=== PATIENT | female | born 2000 | race Caucasian/White ===

== ENCOUNTER 2022-11-28 20:18 | Emergency (ER) | payer OTHER ==
[~2022-11-28] VITALS: Ht 160 cm; Wt 54.4 kg
[2022-11-28 20:50] VITALS: BP 128/80
--- NOTE | 2022-11-28 20:50 | NUR ---
TO BED AMBULATORY
--- NOTE | 2022-11-28 21:05 | NUR ---
pt to bed #5
[2022-11-28 21:34] LABS: BASOPHILS % (AUTO) 0.5 % (0.0-2.0); EOSINOPHILS # (AUTO) 0.1 K/uL (0-0.4); EOSINOPHILS % (AUTO) 0.7 % (0.0-4.0); HEMATOCRIT 30.2 % (36-48); HEMOGLOBIN 9.6 g/dL (12.0-16.0); LYMPHOCYTES # (AUTO) 1.8 K/uL (2.5-16.5); LYMPHOCYTES % (AUTO) 23.3 % (20.5-51.1); MEAN CORPUSCULAR HEMOGLOBIN 22 pg (27-31); MEAN CORPUSCULAR HGB CONC 32 g/dL (33-37); MEAN CORPUSCULAR VOLUME 68.1 fL (80-94); MONOCYTES # (AUTO) 0.5 K/uL (0.8-1.0); MONOCYTES % (AUTO) 6.1 % (1.7-9.3); NEUTROPHILS # (AUTO) 5.4 K/uL (1.8-7.7); NEUTROPHILS % (AUTO) 69.4 % (42.2-75.2); PLATELET COUNT (AUTO) 290 K/uL (140-450); RED BLOOD CELL COUNT(AUTO) 4.44 MIL/uL (4.20-5.40); RED CELL DISTRIBUTION WIDTH 18.3 % (11.6-13.7); WHITE BLOOD COUNT (AUTO) 7.8 K/uL (4.5-11.0)
--- NOTE | 2022-11-28 21:35 | NUR ---
UA collected and sent to lab
--- NOTE | 2022-11-28 21:40 | NUR ---
22 Y/O F presents with sucidal ideation x 1week triggered by parents due to verbal aggresion, increased tension, and states has a plan to take OTC medication to OD, not sure exactly when. pt stated she has had these thoughts sincve the 7th grade. pt has superficial abrasion cuts to her L FA stated most recent cut was today with razor blades and shes been cutting since the 7th grade. pt also stated she has been hospitalizied in the 7th grade once x6days and another x8days, but havent been hospitalizied since. pt states she has recently started therapy x1 session x1week ago. pt states she has siblings but no other support system she can stay with, she is actively staying with parents at the moment. pt is A&Ox4, skin intact, denies being on any blood thinners or prescribed meds at home. PMH- NKA
[2022-11-28 21:55] LABS: BARBITURATE, URINE NEGATIVE ng/ml (NEG <=200); BENZODIAZEPINE, URINE NEGATIVE ng/mL (NEG <=200); CANNABINOID, URINE POSITIVE ng/mL (NEG <=50); COCAINE, URINE NEGATIVE ng/mL (NEG <=300); OPIATE, URINE NEGATIVE ng/mL (NEG <=2000); PHENCYCLIDINE SCREEN,URINE NEGATIVE ng/mL (NEG <=25)
[2022-11-28 21:55] LABS: ANION GAP 12.1 (8-16); CARBON DIOXIDE 29.3 mmol/L (21-32); CREATININE 0.9 mg/dL (0.6-1.3); POTASSIUM 3.4 mmol/L (3.5-5.1)
[2022-11-28 22:05] LABS: ACETAMINOPHEN < 0.5 ug/ml (10-30); SALICYLATE < 2.8 mg/dL (2.8-20.0)
--- NOTE | 2022-11-28 22:07 | NUR ---
Patient being evaluated by physician at bedside.
--- NOTE | 2022-11-28 23:00 | NUR ---
pt ambulatory to restroom
--- NOTE | 2022-11-28 23:05 | NUR ---
pt returned from restroom
[2022-11-28] MEDS ORDERED: MELATONIN 3 MG TAB PO STA (23:55)
[2022-11-28] MEDS ORDERED: hydrOXYzine PAMOATE 25 MG CAP PO STA (23:55)
[2022-11-29] MEDS ORDERED: traZODone 50 MG TAB PO STA (01:05)
[2022-11-29] MEDS ORDERED: HYDROXYZINE HYDROCHLORIDE 25 MG TAB ONE (01:05)
--- NOTE | 2022-11-29 01:33 | NUR ---
pt speaking with Dr. Rivera at this time.
[2022-11-29] MEDS ORDERED: FERR325E14 PO (02:14)
[2022-11-29] MEDS ORDERED: BUPR-160 PO (02:14)
--- NOTE | 2022-11-29 02:17 | NUR ---
Dr. Siddiqi at bedside
--- NOTE | 2022-11-29 02:50 | NUR ---
Patient discharged with v/s stable. Written and verbal after care instructions given and explained. Patient alert, oriented and verbalized understanding of instructions. Ambulatory with steady gait. All questions addressed prior to discharge. ID band removed. Patient advised to follow up with PMD. Rx of Bupropion HCI and ferrous sulfate given. Opportunity to ask questions provided and answered.
== END 2022-11-29 02:50 | disposition home or self-care (01) ==
LOC: MED 20:18
DX: R45.851 Suicidal ideations (principal); F32.9 Major depressive disorder, single episode, unspecified; D50.9 Iron deficiency anemia, unspecified; Z20.822 Contact with and (suspected) exposure to COVID-19; F12.90 Cannabis use, unspecified, uncomplicated; Z79.899 Other long term (current) drug therapy
CPT/HCPCS: 36415; 80048; 80305; 81025; 85025; 87426; 87635; 99283; C9803; G0480; G0482